=== PATIENT | male | born 1960 | race Caucasian/White ===

== ENCOUNTER → 2023-05-21 | Outpatient (CLI) | payer BC, SELFPAY ==
[2023-05-21 12:30] LABS: Amphetamine Urine VISTA NEGATIVE (<1000 ng/mL); Barbiturate Urine VISTA NEGATIVE (< 200 ng/mL); Benzodiazepine Urine VISTA POSITIVE (< 200 ng/mL); Cocaine Urine VISTA NEGATIVE (< 300 ng/mL); Ecstacy Urine VISTA NEGATIVE (< 500 ng/mL); Methadone Urine VISTA NEGATIVE (< 300 ng/mL); PCP Urine VISTA NEGATIVE (< 25 ng/mL); THC Urine VISTA NEGATIVE (< 50 ng/mL); Vista UDS pH Range 6
== END | disposition home or self-care (01) ==
LOC: LAB 11:11
PROVIDERS: PCP Family Medicine; Referring Provider Anesthesiology; Visit Provider Anesthesiology
DX: F11.20 Opioid dependence, uncomplicated (principal)
CPT/HCPCS: 80307

== ENCOUNTER 2024-04-07 11:20 | Day surgery (SDC) | payer BC, SELFPAY ==
[2024-04-07] VITALS (9 sets, daily range): BP systolic 118–128; BP diastolic 71–97; PULSE 64–74; RESP 16–18; TEMP 36.1–36.4; O2SAT 95–98; BMI 25.0
--- NOTE | 2024-04-07 11:46 | PCM.PRE.AN2 ---
ASA Classification* ASA Classification ASA Classification: 2 Assessment & Plan Anesthesia* Anesthesia Assessment Anesthesia Assessment: Discussed sedation and/or anesthesia options, risks, benefits, and alternatives with patient/parents/legal guardian/POA. Questions invited. The patient/parents/legal guardian/POA seems to understand and agrees to proceed with anesthesia plan. Reviewed the physical assessment, medical history, allergy history and patient home medications list prior to surgery/procedure/anesthetic and documented any changes. Performed airway and anesthesia risk assessments. 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 When Was Last Pacemaker Check QUESTION #4 FULL TEXT: You/Your Family Experience fever (hyperthermia) with Anesthesia Last Oral Intake Last Oral intake: Last Oral Intake NPO since Meds taken in AM with sips of water? Meds patient instructed to take am of surgery PONV PONV - meteorological technician: PONV - meteorological technician Female No 04/06/24 14:47 HX of Motion Sickness No 04/06/24 14:47 HX of N/V After Surgery No 04/06/24 14:47 Non-Smoker Yes 04/06/24 14:47 Duration of Surgery greater No 04/06/24 14:47 than 60 minutes Number of Risk Factors 1 04/06/24 14:47 PONV Score Low Risk 04/06/24 14:47 Height & Weight Height & Weight: Anesthesia: Height & Weight Weight: 92.986 kg 04/07/24 09:14 Respiratory Assessment Respiratory Assessment - meteorological technician: Respiratory Tract Infection Hx - meteorological technician Hx Respiratory Tract Infection No 04/06/24 14:47 STOP Sleep Apnea STOP Sleep Apnea - meteorological technician: STOP Sleep Apnea - meteorological technician Hx Hypertension No 04/06/24 14:47 Hx Sleep Apnea No 04/06/24 14:47 CPAP BIPAP Do you snore loudly (louder No 04/06/24 14:47 than talking or can be heard Do you often feel tired/ No 04/06/24 14:47 fatigued/ sleepy during daytime? Has anyone observed you stop No 04/06/24 14:47 breathing during sleep? STOP Results Negative 04/06/24 14:47 QUESTION #5 FULL TEXT : Do you snore loudly (louder than talking or can be heard through closed doors)? 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 Specify any problems Hx of Preganancy in last 3 N/A 04/06/24 14:47 Months Nurse Filling Out Transfusion VLEHMAGALIA 04/06/24 14:47 & Questions: Date: 04/06/24 04/06/24 14:47 Time: 14:54 04/06/24 14:47 Patient unable to answer at this time (ie. confused, unrespo /Reproduction History /Reproductive History - meteorological technician: /Reproductive Hx- meteorological technician Hx Now Gestational Age (in weeks): EDC: Hx Hx Para Hx Section SAB Active Medications Active Medications: Current Medications Generic Name Dose Route Start Last Admin Trade Name Freq PRN Reason Stop Dose Admin Vancomycin HCl 1,500 mg/ 530 mls @ 250 mls/hr 04/07/24 13:00 Sodium Chloride IV 04/07/24 15:07 PREOP ONE Sodium Chloride 1,000 mls @ 15 mls/hr 04/07/24 11:35 IV 04/13/24 00:54 .Q48H MICHAEL Protocol PFSH Medical History Wears hearing aid Wears glasses Anxiety Alcohol use Thyroid disease Migraine headache Back pain History of hiatal hernia Ulcerative colitis Gastric reflux Former smoker Home Medications ?Medication ?Instructions ?Recorded ?Last Taken ?Type Lactobacillus acidophilus 10 100 mmu cells PO DAILY 04/06/24 Unknown History billion cell capsule (Probiotic) acetaminophen 500 mg capsule 1,000 mg PO Q6H PRN pain 04/06/24 Unknown History alprazolam 0.5 mg tablet 0.5 mg PO BID 04/06/24 04/07/24 History duloxetine 60 mg capsule,delayed 60 mg PO BID 04/06/24 Unknown History release levothyroxine 175 mcg tablet 175 mcg PO DAILY 04/06/24 04/07/24 History pantoprazole 40 mg tablet,delayed 40 mg PO DAILY 04/06/24 Unknown History release pregabalin 100 mg capsule 100 mg PO TID 04/06/24 04/07/24 History sulfasalazine 500 mg tablet 1 g PO Q12H 04/06/24 Unknown History Allergy/AdvReac Type Severity Reaction Status Date / Time No Known Allergies Allergy Verified 04/07/24 11:42 Surgical History History of hernia surgery History of back surgery Hx of fusion of cervical spine History of right hip replacement Social History Smoking Status: Former smoker Review of Systems (Anesthesia) ROS Narrative System reviewed and no additional complaints, except as documented.
[2024-04-07] MEDS: 0.9% Normal Saline (1000mL) 1,000 ML 15 ML IV (12:00)
[2024-04-07] MEDS: Vancomycin HCl 1,500 MG in 0.9% Normal Saline (500mL Bag) 500 ML 250 MG IV (12:01)
--- NOTE | 2024-04-07 13:30 | RAD_ITS ---
EXAM: XR LUMBOSACRAL SPINE, 2 OR 3 VIEWS CLINICAL INDICATION: PERMANENT SPINAL CORD STIM TECHNIQUE: Frontal and lateral spot images of the lumbar spine and sacrum. COMPARISON: No relevant prior studies available. FINDINGS: TUBES, LINES AND DEVICES: Fluoroscopy support for spinal cord stimulator placement. OTHER FINDINGS: Fluoroscopy time: 220 seconds. 12 spot images. Cumulative dose: 54.66 mgy. RAD/Lumbar Spine 2 or 3 Views IMPRESSION: Fluoroscopy support for spinal cord stimulator placement. Fluoroscopy time: 220 seconds. 12 spot images. Cumulative dose: 54.66 mgy. Electronically Signed: Dominic Hernandez MD at 11:28 EST ,
[2024-04-07] MEDS: Lidocaine 1%/Epi 1:200 (30ml) 30 ML AMPUL (14:15)
[2024-04-07] MEDS: Bupivacaine 0.25% 30 ML Vial (15:27)
--- NOTE | 2024-04-07 15:41 | PCM.POST.ANE ---
Anesthesia: Postop Eval I Current Vital Signs Temperature: 97.6 F Pulse Rate: 72 Blood Pressure: 120/71 Respiratory Rate: 16 Pulse Ox: 95 Oxygen Delivery Method: Room Air Assessment Airway patent: Yes Spontaneous unlabored respirations: Yes Mental status: Awake and Calm nausea: No Vomiting: No Anesthesia Complication: No Fluid Hydration Crystalloid volume administer (ml): 300 Total IV fluid infused: 300 Progress Note Anesthesia document: Postop Eval 1 completed: Yes
--- NOTE | 2024-04-07 16:38 | POSTOPAN2_ITS ---
Anesthesia Postop Eval I Sum Postop Eval Completion status Anesthesia document: Postop Eval 1 completed: Yes Anesthesia Postop Eval I Summary Anesthesia Postop Eval I Summary: Anesthesia Postop Eval I: Assessment Summary Airway patent Yes 04/07/24 15:42 GENERAL PARTNER.SKOBY Spontaneous unlabored Yes 04/07/24 15:42 GENERAL PARTNER.SHANNENOBJessica respirations Mental status Awake,Calm 04/07/24 15:42 GENERAL PARTNER.SKOBY nausea No 04/07/24 15:42 GENERAL PARTNER.SKOBY Vomiting No 04/07/24 15:42 GENERAL PARTNER.SKOBY Anesthesia Postop Eval I: Fluid Summary Crystalloid volume administer 300 04/07/24 15:42 GENERAL PARTNER.SKOBY (ml) Colloids volume administered ( ml) Blood Product volume administered (ml) Total IV fluid infused 300 04/07/24 15:42 GENERAL PARTNER.SHANNENOBY Anesthesia Postop Eval I: Summary Notes Anesthesia Complication No 04/07/24 15:42 GENERAL PARTNER.SHANNENOBJessica Anesthesia Complication Comment: Post-operative progress note Anesthesia: Postop Eval II Evaluation Mental status: Awake and Calm Pain Level: 2 nausea: No Vomiting: No Complications Anesthesia Complication: No
--- NOTE | 2024-04-07 16:38 | PCM.POSTANE2 ---
Anesthesia Postop Eval I Sum Postop Eval Completion status Anesthesia document: Postop Eval 1 completed: Yes Anesthesia Postop Eval I Summary Anesthesia Postop Eval I Summary: Anesthesia Postop Eval I: Assessment Summary Airway patent Yes 04/07/24 15:42 MAKE READY WORKER.SKOBY Spontaneous unlabored Yes 04/07/24 15:42 MAKE READY WORKER.SHANNENOBJessica respirations Mental status Awake,Calm 04/07/24 15:42 MAKE READY WORKER.SKOBY nausea No 04/07/24 15:42 MAKE READY WORKER.SKOBY Vomiting No 04/07/24 15:42 MAKE READY WORKER.SKOBY Anesthesia Postop Eval I: Fluid Summary Crystalloid volume administer 300 04/07/24 15:42 MAKE READY WORKER.SKOBY (ml) Colloids volume administered ( ml) Blood Product volume administered (ml) Total IV fluid infused 300 04/07/24 15:42 MAKE READY WORKER.SHANNENOBY Anesthesia Postop Eval I: Summary Notes Anesthesia Complication No 04/07/24 15:42 MAKE READY WORKER.SHANNENOBJessica Anesthesia Complication Comment: Post-operative progress note Anesthesia: Postop Eval II Evaluation Mental status: Awake and Calm Pain Level: 2 nausea: No Vomiting: No Complications Anesthesia Complication: No
--- NOTE | 2024-04-07 17:07 | OP.PCM_ITS ---
Operative Report (Standard) Operative Information Date of Procedure: 04/07/24 Pre-Operative Diagnosis: Post laminectomy syndrome Post-Operative Diagnosis: Post laminectomy syndrome Surgery/Procedure Performed: Spinal Cord Stimulator implantation slot floorperson: Yes Delicatessen Manager: Catarino Ordaz Tasks completed by clerical dentist assistant: Opening, Closing, Opening & closing, Dissecting tissue, Removing tissue, Implanting device, Altering tissue, Hemostasis: Electrocautery, Retracting and Other Type of Anesthesia: MAC RN Documented Start/Stop Times: Operation Date: 04/07/24 13:00 Case Time Into Pre-Op 04/07/24 11:32 Anesthesia Start 04/07/24 13:37 Into Room 04/07/24 13:37 Procedure Start 04/07/24 14:00 Procedure End 04/07/24 15:36 Anesthesia End 04/07/24 15:39 Out of Room 04/07/24 15:39 Into Recovery 04/07/24 15:41 Out of Recovery 04/07/24 16:14 Into Phase II Recovery 04/07/24 16:15 Procedure Start Time: 14:00 Procedure Stop Time: 15:36 Select all DRAINS/GRAFTS/IMPLANTS that apply: None Estimated Blood Loss: Minimal Specimen collected: No Description of surgery: The patient was brought to the operating room and positioned prone on the operating table. All pressure points were appropriately padded. The back and right flank were prepped, cleaned and draped in the usual sterile fashion (chlorhexidine). Anesthesia was induced. Antibiotics were delivered preoperatively. Ioban was used. A 5 cm midline incision was made at the T12-L1 interspace using a scalpal, cautery and blunt dissection. Then the epidural space was accessed under fluoroscopic guidance via loss of resistance technique to normal saline.. Two leads were carefully placed in the epidural space and advanced to the desired positions. The left lead was positioned with its distal tip at the bottom of the T8 vertebral body, while the right lead was positioned with its distal tip at the top of the T8 vertebral body. Proper lead placement was confirmed through impedance testing and fluoroscopic imaging. The leads were secured using [employer] anchoring devices, which were sutured in place with silk sutures within the midline incision. Next, the leads were tunneled from the midline incision to a subcutaneous generator pocket created in the right flank. Care was taken to ensure the integrity of the leads during the tunneling process. The generator was placed in the right flank pocket and connected to the leads. Connections were verified to be secure, and the generator was anchored in place using silk sutures. Hemostasis was achieved throughout the procedure using cautery, and no significant bleeding was encountered. Lidocaine 1% was used for local anesthesia at the beginning of the case, and Bupivacaine was injected at the incision sites at the conclusion of the procedure for postoperative pain control. The deeper tissues were closed using Vicryl sutures, and the skin was closed with Monocryl in a running subcuticular fashion. Steri-Strips were applied over the incision sites, and the wounds were dressed with sterile bandages. The patient tolerated the procedure well and was transferred to the recovery area in stable condition. Postoperative testing confirmed excellent coverage of the patient?s painful areas, including the bilateral legs and back. The patient was prescribed [place] for three days to manage acute postoperative pain. Estimated Blood Loss: Minimal. Specimens Sent: None. Complications: None. Postoperative Plan: The patient will continue routine follow-up for further evaluation of spinal cord stimulator function and overall pain relief. Moving all extremities. [employer] pharmaceutical service representative had extensive discussions pre and post operatively with patient. Patient to follow up in our office in 1 week. Surgical Findings: NA Complications Complications: No
== END 2024-04-07 17:08 | disposition home or self-care (01) ==
LOC: SDC 11:25 → AC 11:27
PROVIDERS: PCP Family Medicine; Referring Provider Anesthesiology; Visit Provider Anesthesiology
PROC: (CPT 63685; principal; 2024-04-07 12:45)
DX: M96.1 Postlaminectomy syndrome, not elsewhere classified (principal); M47.26 Other spondylosis with radiculopathy, lumbar region; Z98.1 Arthrodesis status; Z87.891 Personal history of nicotine dependence
CPT/HCPCS: 63685; 72100; 76000; C1713; C1778; C1820; J2405